=== PATIENT | female | born 1960 | race Caucasian/White ===

== ENCOUNTER → 2019-08-07 | Day surgery (SDC) | payer BC ==
[~2019-08-07] MED LIST: ACETAMINOPHEN650 M1 PO; ADVAIR 100-501 EACH INH; FENTANYL CITRATE/PF 100MCG/2 ML INJ ONE; IPRAT-ALBUT 0.5-3 ML NEB; MIDAZOLAM HCL 2 MG/2 ML VIAL ONE; PROAIR HFA INH8.5 GM INH; PROPOFOL IV EMULSION 10 MG/ML 50 ML VIAL ONE; SPIRIVA18 MCG INH
--- OUTSIDE RECORDS SUMMARY | 2019-08-07 05:29 | XMS REPORT ---
Author Author [facility] Address Unknown Phone Unavailable Care Team Providers Care Endoscopy Nurse Name Role Phone KIRSTIE GALINDO Unavailable Unavailable Payers Payer Name Policy Type Policy Number Effective Date Expiration Date Problems This patient has no known problems. Allergies, Adverse Reactions, Alerts Allergy Name Allergy Type Status Severity Reaction(s) Onset Date Inactive Date Treating Clinician Comments No Known Allergies DA Active U 2017-12-10 00:00:00 Medications This patient has no known medications. Results Test Description Test Time Test Comments Text Results Atomic Results Result Comments - XR NECK SOFT TISSUE 2018-11-03 12:38:00 FAX: Kirstie Pelletier MD [phone] [place]: St: [facility] FAX: Ana Rosa Colbert MD [phone] Name: AMELIE [facility] : 1960 Age/S: 58/F [address] [place] [address] Blvd Unit #: [id number] Loc: [place] [address] Phys: Ana Rosa Petersen MD Acct: [id number] Dis Date: Status: REG CLI PHONE #: [phone] Exam Date: 11/03/2018939 FAX #: [phone] Reason: M19.90. INFLAMMATORY ARTHRITIS. EXAMS: CPT CODE: [id number] XR NECK SOFT TISSUE 71094 Soft tissue neck 2 view HISTORY: Inflammatory arthritis. Pulmonary nodule. No relevant comparison. FINDINGS: The epiglottis and aryepiglottic folds are normal. There is no prevertebral soft tissue swelling. There is extensive degenerative disc and degenerative facet change at the mid to low cervical spine. Chronic findings at the lung apices are described on separate CT chest. IMPRESSION: 1. No acute soft tissue neck abnormality. 2. Extensive mid to low cervical degenerative disc and degenerative facet change. This may reflect inflammatory arthritis given history. 3. Lung findings are described on separate CT chest. SL:01 at 1238 Reported and signed by: Anselmo Pickens M.D. CC: Kirstie Galindo MD; Ana Rosa Petersen MD Technologist: RT Meghana(Cynthia) Trnscrd Date/Time/By: 11/03/2018 (1238) : By: Laureen Orig Print D/T: S: 11/03/2018 (2913) PAGE 1 Signed Report - CT CHEST W/O CONTRAST 2018-11-03 12:22:00 Name: AMELIE THOM[facility] : 1960 Age/S: 58 / F [address] [place] [address] Unit #: [id number] Loc: [place] [address] Phys: Ana Rosa Petersen MD Acct: [id number] Dis Date: Status: REG CLI PHONE #: [phone] Exam Date: 11/03/2018 09 FAX #: [phone] Reason: R91.1, SOLITARY PULMONARY NODULE. EXAMS: CPT CODE: [id number] CT CHEST W/O CONTRAST 10378 PROCEDURE: CT CHEST WITHOUT CONTRAST INDICATION: Solitary pulmonary nodule. COMPARISON: No relevant priors available. TECHNIQUE: Helical imaging performed apices through the lung bases with axial, sagittal and coronal reformations. CT imaging performed at this location utilizes radiation dose optimization techniques which include one or more of the following: - Automated exposure control -Adjustment of the mA and/or kV according to patient size -Use of iterative reconstruction technique CT Radiation Dose DLP 115.20 mGy-cm IV CONTRAST: None. FINDINGS: LUNGS: Interstitial process with areas of consolidation and associated volume loss involving the majority of the left upper lobe. Areas of cavitation are noted within the lung parenchyma left upper lobe. Subpleural opacity left lower lobe 10 mm in diameter. This is on axial image 154 series 3. A few much smaller opacities 2 to 3 mm in diameter noted in the superior segment left lower lobe. Emphysematous changes noted throughout the right upper lobe and a small amount of chronic appearing fibrocalcific scarring anteriorly right upper lobe. No pleural effusions. MEDIASTINUM: There are a few very small 5 to 6 mm or less mediastinal nodes. Thoracic aorta normal in caliber. Central airway clear. UPPER ABDOMEN: Visualized upper abdominal viscera are bhargav l. MUSCULOSKELETAL: Diffuse osteopenia. Bones intact. IMPRESSION: 1. Chronic appearing changes involving the majority of the left upper lobe with associated volume loss. These are most likely postinflammatory. Less pronounced changes right upper lobe. 2. 10 mm subpleural opacity left lower lobe laterally. I have no prior exams to establish stability. Recommend comparison to prior exams from another facility. 3. Emphysematous change right upper lobe. 4. Osteopenia. PAGE 1 Signed Report (CONTINUED) Name: AMELIE THOM[facility] : 1960 Age/S: 58 / F [address] [place] [address] Unit #: [id number] Loc: [place] [address] Phys: Ana Rosa Petersen MD Acct: [id number] Dis Date: Status: REG CLI PHONE #: [phone] Exam Date: 11/03/2018 09 FAX #: [phone] Reason: R91.1, SOLITARY PULMONARY NODULE. EXAMS: CPT CODE: [id number] CT CHEST W/O CONTRAST 77690 <Continued> END IMPRESSION [id number] at 1222 Reported and signed by: Gilmar Toscano M.D. CC: Kirstie Galinod MD; Ana Rosa Petersen MD Technologist:Vinay Walker, RT(R); Martin CTDI: DLP: Trnscb Date/Time: 11/03/2018 (122) t.[email or web address].RTB Orig Print D/T: S: 11/03/2018 (5766) PAGE 2 Signed Report - XR SHOULDER 2 + V BI 2018-11-03 11:04:00 FAX: Kirstie Pelletier MD [phone] [place]: St: [facility] FAX: Ana Rosa Colbert MD [phone] Name: AMELIE THOM[facility] : 1960 Age/S: 58/F [address] [place] [address] Blvd Unit #: [id number] Loc: [place] [address] Phys: Ana Rosa Petersen MD Acct: [id number] Dis Date: Status: REG CLI PHONE #: [phone] Exam Date: 11/03/2018 0948 FAX #: [phone] Reason: M25.519 , SHOULDER PAIN. EXAMS: CPT CODE: [id number] XR SHOULDER 2 + [place] [address] BILATERAL SHOULDERS, 3 VIEWS EACH 11/03/2018 COMPARISON: None CLINICAL HISTORY: M25.519 , SHOULDER PAIN. FINDINGS: No acute fracture or dislocation is noted. No lytic or blastic lesion is seen. No significant joint space narrowing noted. No abnormal soft tissue calcifications are seen within either shoulder. A few calcifications are seen in the region of the right carotid artery. Abnormal opacities with cystic changes are present in the left upper lobe with associated left apical pleural thickening. Minor right upper lobe pleural and parenchymal scarring noted. CO NCLUSION: No acute osseous abnormality is seen in the shoulders. Abnormal left upper lobe opacities/cystic changes. Consider CT chest for further assessment. at 1104 Reported and signed by: Dwayne Aceves M.D. CC: Kirstie Galindo MD; Ana Rosa Petersen MD Technologist: GAIL Kowalski) Trnscrd Date/Time/By: 11/03/2018 (2348) : By: [email or web address] Orig Print D/T: S: 11/03/2018 (4462) PAGE 1 Signed Report US RENAL DOPPLER LTD [place] [address] Patient Name: AMELIE INMAN MR #: [id number] : 1960 Age/Sex: 57/F Acct #: [id number] Req #: [id number] Adm Physician: Ordered by: KIRSTIE GALINDO MD Report #: [id number] Location: US Room/Bed: Procedure: [id number] US/US RENAL DOPPLER LTD Exam Date: Exam Time: REPORT STATUS: Signed PROCEDURE: RENAL DOPPLER ULTRASOUND COMPARISON: [facility], CT, CT CHEST WO, 01/11/2017, 8:19. [facility], CT, OUTSIDE CT IMAGES, 02/10/2016, 9:46. INDICATIONS: HTN NOT CONTROLLED FINDINGS: Multiple sagittal and axial images of the right and left kidneys were obtained. RIGHT KIDNEY: The right kidney measures 9.0 cm. The cortical thickness is 1.1 cm. The right kidney has normal echogenicity. There are no masses, hydronephrosis or calculi. The right renal artery PSV is 91.1, 33.8, 54.3 and 47.4 cm/sec at the ostium, proximal, mid, and distal aspects, respectively. The right segmental artery PSV is 44.7, 61.1 and 33.3 in the superior, mid, and inferior aspects, respectively cm/sec. LEFT KIDNEY: The left kidney measures 9.5 cm. The cortical thickness is 1.8 cm. The left kidney has normal echogenicity. There are no masses, hydronephrosis or calculi. The left renal artery PSV is 78.8, 42.4, 54.7 and 46.5 cm/sec at the ostium, proximal, mid, and distal aspects, respectively. The left segmental artery PSV is 31.5, 41.0 and 44.7 cm/sec at the superior, mid, and inferior aspects, respectively. The abdominal aorta PSV is 53.2, 39.7 and 37.3 cm/sec at the proximal, celiac/SMA and distal aspects of the respectively. The right renal artery/aorta ratio is 1.7. The left renal artery/aorta ratio is 1.5. The right and left renal veins are patent. The bladder is unremarkable. No focal lesions. Bilateral ureteral jets are identified. CONCLUSION: 1. Essentially unremarkable renal ultrasound. 2. No sonographic evidence for renal artery stenosis. Luis Dumont M.D. Dictated by: Luis Dumont M.D. on 05/10/2017 at 14:24 Electronically approved by: Luis Dumont M.D. on 05/10/2017 at 14:24 Dictated By: LUIS DUMONT MD 142 Transcribed By: CHEO on 05/10/17 1424 COPY TO: KIRSTIE GALINDO MD US RENAL RETROPERITONEAL COMP [place] [address] Patient Name: AMELIE INMAN MR #: [id number] : 1960 Age/Sex: 57/F Acct #: [id number] Req #: [id number] Adm Physician: Ordered by: KIRSTIE GALINDO MD Report #: [id number] Location: US Room/Bed: Procedure: [id number] US/US RENAL RETROPERITONEAL COMP Exam Date: Exam Time: REPORT STATUS: Signed PROCEDURE: US RETROPERITONEAL ( KIDNEY ). COMPARISON: [facility], CT, CT CHEST WO, 01/11/2017, 8:19. INDICATIONS: HTN NOT CONTROLLED CONCLUSION: Please see previously dictated report under renal Doppler ultrasound performed same date Luis Dumont M.D. Dictated by: Luis Dumont M.D. on 05/10/2017 at 14:24 Electronically approved by: Luis Dumont M.D. on 05/10/2017 at 14:24 Dictated By: LUIS DUMONT MD 1424 Transcribed By: CHEO on 05/10/171423 COPY TO: KIRSTIE GALINDO MD
[2019-08-07 06:41] LABS: BASOPHILS # (AUTO) 0.1 (0.0-0.1); BASOPHILS % 0.6 % (0.0-1.0); EOSINOPHILS # (AUTO) 0.1 (0.0-0.4); EOSINOPHILS % 0.7 % (0.0-6.0); HEMATOCRIT 26.1 % (34.2-44.1); HEMOGLOBIN 8.1 g/dL (12.0-16.0); LYMPHOCYTES # (AUTO) 1.5 (1.0-3.2); MEAN CORPUSCULAR VOLUME 77.4 fL (81-99); MONOCYTES # (AUTO) 1.9 (0.2-0.8); NEUTROPHILS # (AUTO) 11.2 (2.1-6.9); PLATELET COUNT 666 x10e3/uL (140-360); RED BLOOD COUNT 3.37 x10e6/uL (3.6-5.1); RED CELL DISTRIBUTION WIDTH 15.3 % (11.7-14.4)
[2019-08-07 07:45] VITALS: BP 101/60
[2019-08-07 08:40] LABS: LYMPHOCYTES % (MANUAL) 7 % (19-48); MONOCYTES % (MANUAL) 13 % (3.4-9.0); NEUTROPHILS % (MANUAL) 80 % (40-74); PLATELET ESTIMATE SLIGHTLY INCREASED; PLATELET MORPHOLOGY COMMENT NORMAL; RBC MORPHOLOGY COMMENT NORMAL
== END | disposition home or self-care (01) ==
LOC: OR 05:25
PROVIDERS: ATTEND Internal Medicine Gastroenterology
DX: D50.0 Iron deficiency anemia secondary to blood loss (chronic) (principal); K29.50 Unspecified chronic gastritis without bleeding; K21.9 Gastro-esophageal reflux disease without esophagitis; K44.9 Diaphragmatic hernia without obstruction or gangrene; K57.30 Diverticulosis of large intestine without perforation or abscess without bleeding; K64.8 Other hemorrhoids; R00.0 Tachycardia, unspecified; J44.9 Chronic obstructive pulmonary disease, unspecified; I10 Essential (primary) hypertension; F17.200 Nicotine dependence, unspecified, uncomplicated
CPT/HCPCS: 36415; 43239; 45378; 85025; J2250; J2704; J3010

== ENCOUNTER 2020-05-02 16:31 | Inpatient (IN) | payer BC ==
[~2020-05-02] VITALS: Ht 152.4 cm; Wt 31.5 kg
[~2020-05-02 16:31] MED LIST changes: -FENTANYL CITRATE/PF 100MCG/2 ML INJ ONE; -MIDAZOLAM HCL 2 MG/2 ML VIAL ONE; -PROPOFOL IV EMULSION 10 MG/ML 50 ML VIAL ONE
[2020-05-02] MEDS ORDERED: SODIUM CHLORIDE 0.9% 1000ML 1,000 ML IV STA (17:18)
[2020-05-02] MEDS ORDERED: PANTOPRAZOLE 40 MG 10ML VIAL IV NR (17:30)
[2020-05-02] MEDS ORDERED: ONDANSETRON HCL INJ 2MG/ML 2ML 2 MG/ML VIAL IV PRN (19:00)
[2020-05-02 20:02] LABS: BASOPHILS % 0.5 % (0.0-1.0); EOSINOPHILS # (AUTO) 0.1 (0.0-0.4); EOSINOPHILS % 1.1 % (0.0-6.0); HEMATOCRIT 30.2 % (34.2-44.1); HEMOGLOBIN 9.4 g/dL (12.0-16.0); LYMPHOCYTES # (AUTO) 1.6 (1.0-3.2); LYMPHOCYTES % 21.3 % (18.0-39.1); MEAN CORPUSCULAR HGB CONC 31.1 g/dL (31-35); MEAN CORPUSCULAR VOLUME 77.2 fL (81-99); MONOCYTES # (AUTO) 0.7 (0.2-0.8); MONOCYTES % 9.6 % (4.4-11.3); NEUTROPHILS % 67.2 % (38.7-80.0); PLATELET COUNT 248 x10e3/uL (140-360); RED BLOOD COUNT 3.91 x10e6/uL (3.6-5.1)
[2020-05-02 20:12] LABS: INR 1.05; PROTHROMBIN TIME 14.2 seconds (11.9-14.5)
[2020-05-02 20:13] LABS: PARTIAL THROMBOPLASTIN TIME 46.9 seconds (23.8-35.5)
[2020-05-02] MEDS: CEFTRIAXONE SOD 1 GM/NS 50 ML 50 ML IV SCH (20:13)
[2020-05-02 20:22] LABS: ALANINE AMINOTRANSFERASE 7 IU/L (0-55); ALBUMIN/GLOBULIN RATIO 0.8 (0.8-2.0); ALKALINE PHOSPHATASE 85 IU/L (40-150); ANION GAP 11.2 mmol/L (8-16); BLOOD UREA NITROGEN 9 mg/dL (7-26); BUN/CREATININE RATIO 15 (6-25); CALCIUM 8.9 mg/dL (8.4-10.2); CARBON DIOXIDE 27 mmol/L (22-29); CHLORIDE 88 mmol/L (98-107); CREATININE, SERUM 0.59 mg/dL (0.57-1.11); EST GLOMERULAR FILTRATION RATE > 60 ML/MIN (60-); GLUCOSE 89 mg/dL (74-118); MAGNESIUM 1.9 MG/DL (1.3-2.1); POTASSIUM 4.2 mmol/L (3.5-5.1); SODIUM 122 mmol/L (136-145)
[2020-05-02 21:20] VITALS: BP 106/54
[2020-05-02] MEDS ORDERED: RIFABUTIN150 MG PO (21:55)
[2020-05-02] MEDS ORDERED: AZITHROMYCIN250 MG PO (21:57)
[2020-05-02] MEDS: SODIUM CHLORIDE 0.9% 1000ML 1,000 ML IV SCH (22:03)
[2020-05-02] MEDS ORDERED: AMIKACIN S500 MG/2 M IV (22:06)
[2020-05-02 22:19] VITALS: BP 106/54
[2020-05-03] VITALS (8 sets, daily range): BP systolic 98–128; BP diastolic 59–84
[2020-05-03 03:54] LABS: BILIRUBIN,URINE NEGATIVE (NEGATIVE); CLARITY,URINE CLEAR (CLEAR); COLOR,URINE YELLOW (YELLOW); KETONES,URINE NEGATIVE (NEGATIVE); LEUKOCYTE ESTERASE ,URINE NEGATIVE (NEGATIVE); NITRITE,URINE NEGATIVE (NEGATIVE); PROTEIN,URINE DIPSTICK NEGATIVE (NEGATIVE); URINE UROBILINOGEN 0.2 mg/dL (0.2 - 1)
[2020-05-03 04:00] LABS: BACTERIA,URINE RARE /HPF; EPITHELIAL CELLS,URINE FEW /LPF; RBC,URINE 0-5 /HPF (0-5); WBC,URINE (MAN) 0-5 /HPF (0-5)
[2020-05-03 05:22] LABS: BASOPHILS % 0.4 % (0.0-1.0); EOSINOPHILS # (AUTO) 0.1 (0.0-0.4); EOSINOPHILS % 1.1 % (0.0-6.0); HEMATOCRIT 26.5 % (34.2-44.1); HEMOGLOBIN 8.3 g/dL (12.0-16.0); LYMPHOCYTES # (AUTO) 1.1 (1.0-3.2); LYMPHOCYTES % 19.6 % (18.0-39.1); MEAN CORPUSCULAR HEMOGLOBIN 24.3 pg (28-32); MEAN CORPUSCULAR HGB CONC 31.3 g/dL (31-35); MEAN CORPUSCULAR VOLUME 77.5 fL (81-99); MONOCYTES # (AUTO) 0.6 (0.2-0.8); MONOCYTES % 10.8 % (4.4-11.3); NEUTROPHILS # (AUTO) 3.7 (2.1-6.9); NEUTROPHILS % 67.7 % (38.7-80.0); PLATELET COUNT 215 x10e3/uL (140-360); RED BLOOD COUNT 3.42 x10e6/uL (3.6-5.1); RED CELL DISTRIBUTION WIDTH 14.9 % (11.7-14.4)
[2020-05-03] MEDS: SODIUM CHLORIDE 0.9% 1000ML 1,000 ML IV SCH (05:53)
[2020-05-03 06:22] LABS: ALBUMIN 2.5 g/dL (3.5-5.0); ALBUMIN/GLOBULIN RATIO 0.8 (0.8-2.0); ALKALINE PHOSPHATASE 72 IU/L (40-150); ANION GAP 10.8 mmol/L (8-16); BLOOD UREA NITROGEN 8 mg/dL (7-26); BUN/CREATININE RATIO 16 (6-25); CARBON DIOXIDE 26 mmol/L (22-29); CHLORIDE 98 mmol/L (98-107); EST GLOMERULAR FILTRATION RATE > 60 ML/MIN (60-); GLUCOSE 79 mg/dL (74-118); POTASSIUM 3.8 mmol/L (3.5-5.1); SODIUM 131 mmol/L (136-145)
[2020-05-03 06:23] LABS: ALANINE AMINOTRANSFERASE < 6 IU/L (0-55)
[2020-05-03 07:00] LABS: FERRITIN 1785.57 ng/mL (4.63-204.00)
[2020-05-03] MEDS ORDERED: SODIUM CHLORIDE 0.9% 50ML 50 ML ONE ×2 (07:42→23:54)
[2020-05-03] MEDS ORDERED: IOPAMIDOL 370 MG/ML 200 ML INFUS..BTL INJ ONE ×2 (07:42→23:55)
[2020-05-03] MEDS: ACETAMINOPHEN 325 MG TAB PO PRN (09:54)
[2020-05-03] MEDS ORDERED: ALBUTEROL SULFATE HFA 8GM INHALATION AEROSOL INH PRN (10:00)
[2020-05-03] MEDS: PANTOPRAZOLE 40 MG 10ML VIAL IV SCH (10:04)
[2020-05-03] MEDS ORDERED: MIDAZOLAM HCL 2 MG/2 ML VIAL ONE (11:21)
[2020-05-03] MEDS ORDERED: KETAMINE HCL INJ 50 MG/ML 10 ML VIAL ONE (11:21)
[2020-05-03] MEDS: IRON SUCROSE 100 MG in SODIUM CHLORIDE 0.9% 100 ML 100 ML IV SCH (12:45)
[2020-05-03] MEDS ORDERED: PROPOFOL IV EMULSION 10 MG/ML 20 ML VIAL ONE (13:35)
[2020-05-03] MEDS ORDERED: SODIUM CHLORIDE 0.9% 1000ML 0 ML ONE (16:38)
[2020-05-03] MEDS: CEFTRIAXONE SOD 1 GM/NS 50 ML 50 ML IV SCH (18:20)
[2020-05-03] MEDS ORDERED: SODIUM CHLORIDE 0.9% 1000ML 1,000 ML ONE ×2 (21:39→23:38)
[2020-05-03] MEDS ORDERED: ALBUMIN 25% 12.5GM 0.25 GM/ML BTL IV ONE (22:30)
[2020-05-03] MEDS ORDERED: SODIUM CHLORIDE 0.9% 1000ML 1,000 ML IV SCH (22:30)
[2020-05-03] MEDS ORDERED: ALBUMIN 25% 12.5GM 50ML 100 ML IV ONE (22:41)
[2020-05-03 23:09] LABS: BASOPHILS % 0.1 % (0.0-1.0); EOSINOPHILS % 0.2 % (0.0-6.0); HEMATOCRIT 24.4 % (34.2-44.1); HEMOGLOBIN 7.4 g/dL (12.0-16.0); LYMPHOCYTES # (AUTO) 0.7 (1.0-3.2); LYMPHOCYTES % 8.1 % (18.0-39.1); MEAN CORPUSCULAR HEMOGLOBIN 24.5 pg (28-32); MEAN CORPUSCULAR HGB CONC 30.3 g/dL (31-35); MEAN CORPUSCULAR VOLUME 80.8 fL (81-99); MONOCYTES # (AUTO) 0.5 (0.2-0.8); MONOCYTES % 5.8 % (4.4-11.3); NEUTROPHILS # (AUTO) 6.9 (2.1-6.9); NEUTROPHILS % 84.8 % (38.7-80.0); PLATELET COUNT 149 x10e3/uL (140-360); RED BLOOD COUNT 3.02 x10e6/uL (3.6-5.1); RED CELL DISTRIBUTION WIDTH 15.3 % (11.7-14.4)
[2020-05-03] MEDS ORDERED: SODIUM BICARBONATE 8.4% INJ 50 ML SYR IV STA (23:14)
[2020-05-03] MEDS ORDERED: SODIUM BICARBONATE 8.4% 150 ML in DEXTROSE 5% 1,000 ML IV STA (23:19)
[2020-05-03 23:20] LABS: ANION GAP 8.8 mmol/L (8-16); BLOOD UREA NITROGEN 10 mg/dL (7-26); BUN/CREATININE RATIO 19 (6-25); CALCIUM 7.4 mg/dL (8.4-10.2); CARBON DIOXIDE 22 mmol/L (22-29); CHLORIDE 108 mmol/L (98-107); CREATININE, SERUM 0.53 mg/dL (0.57-1.11); EST GLOMERULAR FILTRATION RATE > 60 ML/MIN (60-); POTASSIUM 3.8 mmol/L (3.5-5.1); SODIUM 135 mmol/L (136-145)
[2020-05-03 23:22] LABS: GLUCOSE 27 mg/dL (74-118)
[2020-05-03] MEDS ORDERED: SODIUM BICARBONATE 8.4% SYRING 150 ML ONE ×2 (23:22→23:38)
[2020-05-03 23:24] LABS: ABG HCO3 4 mmol/L (22-26); ABG PCO2 16 mmHg (35-45); ABG PH 6.98 (7.35-7.45); ABG PO2 55 mmHg (80-105)
[2020-05-03 23:25] LABS: ABG TCO2 > 5
[2020-05-03] MEDS ORDERED: DEXTROSE 5% 1,000 ML IV ONE (23:41)
[2020-05-04] VITALS (26 sets, daily range): BP systolic 71–123; BP diastolic 47–77
[2020-05-04 02:37] LABS: ABG HCO3 34 mmol/L (22-26); ABG PCO2 73 mmHg (35-45); ABG PH 7.27 (7.35-7.45); ABG PO2 564 mmHg (80-105); ABG TCO2 36
[2020-05-04] MEDS: DEXTROSE 5%/0.9% SOD CHL 1,000 ML IV SCH ×3 (02:48→22:36)
[2020-05-04 04:43] LABS: BASOPHILS % 0.1 % (0.0-1.0); EOSINOPHILS % 0.1 % (0.0-6.0); HEMATOCRIT 23.3 % (34.2-44.1); HEMOGLOBIN 7.3 g/dL (12.0-16.0); LYMPHOCYTES # (AUTO) 0.6 (1.0-3.2); LYMPHOCYTES % 8.5 % (18.0-39.1); MEAN CORPUSCULAR HEMOGLOBIN 24.7 pg (28-32); MEAN CORPUSCULAR HGB CONC 31.3 g/dL (31-35); MONOCYTES # (AUTO) 0.5 (0.2-0.8); MONOCYTES % 6.8 % (4.4-11.3); NEUTROPHILS # (AUTO) 5.9 (2.1-6.9); NEUTROPHILS % 84.1 % (38.7-80.0); PLATELET COUNT 159 x10e3/uL (140-360); RED BLOOD COUNT 2.95 x10e6/uL (3.6-5.1)
[2020-05-04 08:19] LABS: ALANINE AMINOTRANSFERASE 29 IU/L (0-55); ALBUMIN 2.7 g/dL (3.5-5.0); ALBUMIN/GLOBULIN RATIO 1.1 (0.8-2.0); ALKALINE PHOSPHATASE 147 IU/L (40-150); ANION GAP 11.2 mmol/L (8-16); BLOOD UREA NITROGEN 9 mg/dL (7-26); BUN/CREATININE RATIO 17 (6-25); CALCIUM 7.6 mg/dL (8.4-10.2); CARBON DIOXIDE 29 mmol/L (22-29); CHLORIDE 105 mmol/L (98-107); CREATININE, SERUM 0.54 mg/dL (0.57-1.11); EST GLOMERULAR FILTRATION RATE > 60 ML/MIN (60-); GLUCOSE 110 mg/dL (74-118); POTASSIUM 3.2 mmol/L (3.5-5.1); SODIUM 142 mmol/L (136-145)
[2020-05-04 08:41] LABS: CREATINE KINASE MB 4.2 ng/mL (0-5.0)
[2020-05-04] MEDS: PANTOPRAZOLE 40 MG 10ML VIAL IV SCH (08:43)
[2020-05-04] MEDS: BALSAM PERU/CASTOR OIL 60 GM OINT...G. TP SCH ×2 (09:00→09:19)
[2020-05-04] MEDS: IRON SUCROSE 100 MG in SODIUM CHLORIDE 0.9% 100 ML 100 ML IV SCH (09:20)
[2020-05-04 09:26] LABS: ABG HCO3 31 mmol/L (22-26); ABG PCO2 59 mmHg (35-45); ABG PH 7.33 (7.35-7.45); ABG PO2 229 mmHg (80-105); ABG TCO2 33
[2020-05-04] MEDS: PIPER-TAZ 3.375 GM 50 ML IV SCH ×2 (12:04→18:02)
[2020-05-04 16:42] LABS: ABG PH 7.17 (7.35-7.45)
[2020-05-04 16:44] LABS: ABG HCO3 31 mmol/L (22-26); ABG PCO2 86 mmHg (35-45); ABG PO2 79 mmHg (80-105); ABG TCO2 34
[2020-05-04] MEDS: PROPOFOL IV EMULSION 10MG/ML 100 ML IV PRN (18:02)
[2020-05-04 18:25] LABS: ABG PCO2 86 mmHg (35-45); ABG PH 7.19 (7.35-7.45); ABG PO2 212 mmHg (80-105)
[2020-05-04 18:26] LABS: ABG HCO3 33 mmol/L (22-26); ABG TCO2 35
[2020-05-04] MEDS: ALBUTEROL/IPRATROPIUM 3 ML NEB NEB SCH ×2 (19:00→23:48)
[2020-05-04] MEDS: HEPARIN SOD (PORCINE) 5,000 UNIT/ML VIAL SC SCH (21:08)
[2020-05-04 21:13] LABS: CREATINE KINASE MB 5.8 ng/mL (0-5.0)
[2020-05-05] VITALS (40 sets, daily range): BP systolic 84–131; BP diastolic 50–79
[2020-05-05] MEDS: PIPER-TAZ 3.375 GM 50 ML IV SCH ×5 (00:35→23:45)
[2020-05-05] MEDS: ALBUTEROL/IPRATROPIUM 3 ML NEB NEB SCH ×6 (03:35→23:10)
[2020-05-05 04:48] LABS: BASOPHILS % 0.2 % (0.0-1.0); EOSINOPHILS % 0.6 % (0.0-6.0); LYMPHOCYTES % 20.7 % (18.0-39.1); MEAN CORPUSCULAR HEMOGLOBIN 23.9 pg (28-32); MEAN CORPUSCULAR HGB CONC 30.1 g/dL (31-35); MEAN CORPUSCULAR VOLUME 79.2 fL (81-99); MONOCYTES # (AUTO) 0.5 (0.2-0.8); MONOCYTES % 9.6 % (4.4-11.3); NEUTROPHILS # (AUTO) 3.3 (2.1-6.9); NEUTROPHILS % 68.5 % (38.7-80.0); PLATELET COUNT 130 x10e3/uL (140-360); RED BLOOD COUNT 2.64 x10e6/uL (3.6-5.1); RED CELL DISTRIBUTION WIDTH 15.4 % (11.7-14.4)
[2020-05-05 04:55] LABS: HEMATOCRIT 20.9 % (34.2-44.1); HEMOGLOBIN 6.3 g/dL (12.0-16.0)
[2020-05-05 05:18] LABS: ALANINE AMINOTRANSFERASE 16 IU/L (0-55); ALBUMIN 2.2 g/dL (3.5-5.0); ALBUMIN/GLOBULIN RATIO 0.9 (0.8-2.0); ALKALINE PHOSPHATASE 93 IU/L (40-150); ANION GAP 9.5 mmol/L (8-16); BLOOD UREA NITROGEN 5 mg/dL (7-26); BUN/CREATININE RATIO 9 (6-25); CALCIUM 7.6 mg/dL (8.4-10.2); CARBON DIOXIDE 27 mmol/L (22-29); CHLORIDE 109 mmol/L (98-107); CREATININE, SERUM 0.53 mg/dL (0.57-1.11); EST GLOMERULAR FILTRATION RATE > 60 ML/MIN (60-); GLUCOSE 111 mg/dL (74-118); SODIUM 143 mmol/L (136-145)
[2020-05-05 05:22] LABS: POTASSIUM 2.5 mmol/L (3.5-5.1)
[2020-05-05] MEDS: PROPOFOL IV EMULSION 10MG/ML 100 ML IV PRN (05:55)
[2020-05-05] MEDS ORDERED: SODIUM CHLORIDE 0.9% 250ML 250 ML IV SCH (07:15)
[2020-05-05] MEDS ORDERED: POTASSIUM CHLORIDE 20MEQ/100ML 200 ML IV ONE ×2 (07:15→18:00)
[2020-05-05 09:24] LABS: ABG HCO3 26 mmol/L (22-26); ABG PCO2 42 mmHg (35-45); ABG PH 7.39 (7.35-7.45); ABG PO2 239 mmHg (80-105); ABG TCO2 27
[2020-05-05] MEDS: PANTOPRAZOLE 40 MG 10ML VIAL IV SCH (09:38)
[2020-05-05] MEDS: IRON SUCROSE 100 MG in SODIUM CHLORIDE 0.9% 100 ML 100 ML IV SCH (10:43)
[2020-05-05] MEDS: HEPARIN SOD (PORCINE) 5,000 UNIT/ML VIAL SC SCH ×2 (10:46→20:45)
[2020-05-05] MEDS ORDERED: SODIUM CHLORIDE 0.9% 250ML 250 ML ONE (11:23)
[2020-05-05] MEDS: ETHAMBUTOL HCL 400 MG TAB PO SCH (12:05)
[2020-05-05] MEDS: AZITHROMYCIN 250 MG TAB PO SCH (12:05)
[2020-05-05] MEDS: BALSAM PERU/CASTOR OIL 60 GM OINT...G. TP SCH (12:05)
[2020-05-05] MEDS: RIFAMPIN 300 MG CAP PO SCH (12:05)
[2020-05-05] MEDS ORDERED: POTASSIUM CHLORIDE 20MEQ/100ML 200 ML ONE (15:53)
[2020-05-05] MEDS: DEXTROSE 5%/0.9% SOD CHL 1,000 ML IV SCH (17:46)
[2020-05-06] VITALS (26 sets, daily range): BP systolic 96–130; BP diastolic 53–77
[2020-05-06] MEDS: ALBUTEROL/IPRATROPIUM 3 ML NEB NEB SCH ×6 (03:50→23:02)
[2020-05-06 05:37] LABS: BASOPHILS % 0.4 % (0.0-1.0); EOSINOPHILS # (AUTO) 0.1 (0.0-0.4); EOSINOPHILS % 1.8 % (0.0-6.0); HEMATOCRIT 30.8 % (34.2-44.1); LYMPHOCYTES # (AUTO) 0.9 (1.0-3.2); LYMPHOCYTES % 16.5 % (18.0-39.1); MEAN CORPUSCULAR HEMOGLOBIN 26.3 pg (28-32); MEAN CORPUSCULAR HGB CONC 32.5 g/dL (31-35); MEAN CORPUSCULAR VOLUME 81.1 fL (81-99); MONOCYTES # (AUTO) 0.5 (0.2-0.8); MONOCYTES % 8.6 % (4.4-11.3); NEUTROPHILS % 72.3 % (38.7-80.0); PLATELET COUNT 100 x10e3/uL (140-360); RED CELL DISTRIBUTION WIDTH 15.9 % (11.7-14.4)
[2020-05-06] MEDS: DEXTROSE 5%/0.9% SOD CHL 1,000 ML IV SCH (05:37)
[2020-05-06] MEDS: PIPER-TAZ 3.375 GM 50 ML IV SCH ×3 (05:37→18:34)
[2020-05-06] MEDS: PROPOFOL IV EMULSION 10MG/ML 100 ML IV PRN ×2 (05:38→21:00)
[2020-05-06 06:10] LABS: ALANINE AMINOTRANSFERASE 11 IU/L (0-55); ALBUMIN 1.8 g/dL (3.5-5.0); ALBUMIN/GLOBULIN RATIO 0.7 (0.8-2.0); ALKALINE PHOSPHATASE 79 IU/L (40-150); ANION GAP 7.3 mmol/L (8-16); BLOOD UREA NITROGEN 6 mg/dL (7-26); BUN/CREATININE RATIO 10 (6-25); CARBON DIOXIDE 24 mmol/L (22-29); CHLORIDE 117 mmol/L (98-107); CREATININE, SERUM 0.58 mg/dL (0.57-1.11); EST GLOMERULAR FILTRATION RATE > 60 ML/MIN (60-); GLUCOSE 292 mg/dL (74-118); POTASSIUM 3.3 mmol/L (3.5-5.1); SODIUM 145 mmol/L (136-145)
[2020-05-06] MEDS: BALSAM PERU/CASTOR OIL 60 GM OINT...G. TP SCH (07:34)
[2020-05-06] MEDS: ETHAMBUTOL HCL 400 MG TAB PO SCH (07:41)
[2020-05-06] MEDS: PANTOPRAZOLE 40 MG 10ML VIAL IV SCH (07:41)
[2020-05-06] MEDS: RIFAMPIN 300 MG CAP PO SCH (07:41)
[2020-05-06] MEDS: HEPARIN SOD (PORCINE) 5,000 UNIT/ML VIAL SC SCH ×2 (07:41→20:51)
[2020-05-06] MEDS: AZITHROMYCIN 250 MG TAB PO SCH (07:41)
[2020-05-06] MEDS: IRON SUCROSE 100 MG in SODIUM CHLORIDE 0.9% 100 ML 100 ML IV SCH (08:22)
[2020-05-06] MEDS ORDERED: LIDOCAINE HCL 2% LOCAL INJ 5 ML SDV VIAL INJ ONE (12:14)
[2020-05-06] MEDS ORDERED: PROPOFOL IV EMULSION 10 MG/ML 20 ML VIAL ONE (12:14)
[2020-05-06] MEDS ORDERED: ETOMIDATE 2 MG/ML 10 ML INJ IV ONE (14:05)
[2020-05-06] MEDS ORDERED: SUCCINYLCHOLINE CHLORIDE 20 MG/ML 10ML VIAL ONE (14:05)
[2020-05-06] MEDS ORDERED: MIDAZOLAM HCL 2 MG/2 ML VIAL ONE (14:05)
[2020-05-06] MEDS ORDERED: SODIUM CHLORIDE 0.9% 1000 ML BAG IV ONE (14:18)
[2020-05-07] VITALS (25 sets, daily range): BP systolic 105–140; BP diastolic 59–77
[2020-05-07] MEDS: PIPER-TAZ 3.375 GM 50 ML IV SCH ×4 (01:08→18:00)
[2020-05-07] MEDS: ALBUTEROL/IPRATROPIUM 3 ML NEB NEB SCH ×4 (03:20→19:35)
[2020-05-07 06:18] LABS: BASOPHILS % 0.4 % (0.0-1.0); EOSINOPHILS # (AUTO) 0.1 (0.0-0.4); HEMATOCRIT 30.4 % (34.2-44.1); HEMOGLOBIN 9.7 g/dL (12.0-16.0); LYMPHOCYTES # (AUTO) 0.8 (1.0-3.2); LYMPHOCYTES % 17.1 % (18.0-39.1); MEAN CORPUSCULAR HEMOGLOBIN 25.7 pg (28-32); MEAN CORPUSCULAR HGB CONC 31.9 g/dL (31-35); MEAN CORPUSCULAR VOLUME 80.4 fL (81-99); MONOCYTES # (AUTO) 0.4 (0.2-0.8); NEUTROPHILS # (AUTO) 3.5 (2.1-6.9); NEUTROPHILS % 71.1 % (38.7-80.0); PLATELET COUNT 95 x10e3/uL (140-360); RED BLOOD COUNT 3.78 x10e6/uL (3.6-5.1); RED CELL DISTRIBUTION WIDTH 16.5 % (11.7-14.4)
[2020-05-07 06:33] LABS: ALANINE AMINOTRANSFERASE 9 IU/L (0-55); ALBUMIN 1.8 g/dL (3.5-5.0); ALBUMIN/GLOBULIN RATIO 0.7 (0.8-2.0); ALKALINE PHOSPHATASE 78 IU/L (40-150); ANION GAP 8.8 mmol/L (8-16); BLOOD UREA NITROGEN 11 mg/dL (7-26); BUN/CREATININE RATIO 21 (6-25); CALCIUM 7.5 mg/dL (8.4-10.2); CARBON DIOXIDE 24 mmol/L (22-29); CHLORIDE 114 mmol/L (98-107); CREATININE, SERUM 0.53 mg/dL (0.57-1.11); EST GLOMERULAR FILTRATION RATE > 60 ML/MIN (60-); GLUCOSE 95 mg/dL (74-118); MAGNESIUM 1.3 MG/DL (1.3-2.1); SODIUM 144 mmol/L (136-145)
[2020-05-07 06:36] LABS: POTASSIUM 2.8 mmol/L (3.5-5.1)
[2020-05-07] MEDS ORDERED: POTASSIUM CHLORIDE 20MEQ/15ML UDC NG ONE (06:45)
[2020-05-07] MEDS: AZITHROMYCIN 250 MG TAB PO SCH (10:44)
[2020-05-07] MEDS: PANTOPRAZOLE 40 MG 10ML VIAL IV SCH (10:44)
[2020-05-07] MEDS: RIFAMPIN 300 MG CAP PO SCH (10:44)
[2020-05-07] MEDS: ETHAMBUTOL HCL 400 MG TAB PO SCH (10:44)
[2020-05-07] MEDS: HEPARIN SOD (PORCINE) 5,000 UNIT/ML VIAL SC SCH ×2 (10:45→21:54)
[2020-05-07] MEDS: BALSAM PERU/CASTOR OIL 60 GM OINT...G. TP SCH (10:45)
[2020-05-07] MEDS: IRON SUCROSE 100 MG in SODIUM CHLORIDE 0.9% 100 ML 100 ML IV SCH (10:57)
[2020-05-07] MEDS ORDERED: KCL 20 MEQ PACKET/ ORAL SOLN NG ONE (11:00)
[2020-05-07] MEDS: ACETAMINOPHEN 325 MG TAB PO PRN (13:13)
[2020-05-07 13:41] LABS: ABG HCO3 23 mmol/L (22-26); ABG PCO2 38 mmHg (35-45); ABG PH 7.39 (7.35-7.45); ABG PO2 143 mmHg (80-105); ABG TCO2 24
[2020-05-07] MEDS: MORPHINE SULFATE INJ 4 MG/ML INJ 1ML IV PRN ×2 (15:30→17:11)
[2020-05-08] VITALS (14 sets, daily range): BP systolic 106–134; BP diastolic 65–88
[2020-05-08] MEDS: PIPER-TAZ 3.375 GM 50 ML IV SCH ×4 (00:50→17:22)
[2020-05-08] MEDS: ALBUTEROL/IPRATROPIUM 3 ML NEB NEB SCH ×5 (02:45→19:28)
[2020-05-08 07:25] LABS: ALANINE AMINOTRANSFERASE 8 IU/L (0-55); ALBUMIN 1.8 g/dL (3.5-5.0); ALBUMIN/GLOBULIN RATIO 0.6 (0.8-2.0); ALKALINE PHOSPHATASE 76 IU/L (40-150); ANION GAP 8.9 mmol/L (8-16); BLOOD UREA NITROGEN 11 mg/dL (7-26); BUN/CREATININE RATIO 21 (6-25); CALCIUM 7.9 mg/dL (8.4-10.2); CARBON DIOXIDE 25 mmol/L (22-29); CHLORIDE 114 mmol/L (98-107); CREATININE, SERUM 0.52 mg/dL (0.57-1.11); EST GLOMERULAR FILTRATION RATE > 60 ML/MIN (60-); GLUCOSE 99 mg/dL (74-118); MAGNESIUM 1.4 MG/DL (1.3-2.1); POTASSIUM 3.9 mmol/L (3.5-5.1); SODIUM 144 mmol/L (136-145)
[2020-05-08] MEDS: RIFAMPIN 300 MG CAP PO SCH (08:51)
[2020-05-08] MEDS: AZITHROMYCIN 250 MG TAB PO SCH (08:51)
[2020-05-08] MEDS: ETHAMBUTOL HCL 400 MG TAB PO SCH (08:51)
[2020-05-08] MEDS: PANTOPRAZOLE 40 MG 10ML VIAL IV SCH (08:51)
[2020-05-08] MEDS: BALSAM PERU/CASTOR OIL 60 GM OINT...G. TP SCH (08:52)
[2020-05-08] MEDS: HEPARIN SOD (PORCINE) 5,000 UNIT/ML VIAL SC SCH ×2 (08:52→21:00)
[2020-05-08] MEDS: IRON SUCROSE 100 MG in SODIUM CHLORIDE 0.9% 100 ML 100 ML IV SCH (08:52)
[2020-05-09] VITALS (25 sets, daily range): BP systolic 103–140; BP diastolic 51–81
[2020-05-09] MEDS: ALBUTEROL/IPRATROPIUM 3 ML NEB NEB SCH ×4 (02:46→19:25)
[2020-05-09] MEDS: PIPER-TAZ 3.375 GM 50 ML IV SCH ×2 (05:45)
[2020-05-09 06:18] LABS: ALANINE AMINOTRANSFERASE 8 IU/L (0-55); ALBUMIN 1.8 g/dL (3.5-5.0); ALBUMIN/GLOBULIN RATIO 0.6 (0.8-2.0); ALKALINE PHOSPHATASE 76 IU/L (40-150); ANION GAP 10.6 mmol/L (8-16); BLOOD UREA NITROGEN 11 mg/dL (7-26); BUN/CREATININE RATIO 22 (6-25); CARBON DIOXIDE 25 mmol/L (22-29); CHLORIDE 110 mmol/L (98-107); EST GLOMERULAR FILTRATION RATE > 60 ML/MIN (60-); GLUCOSE 95 mg/dL (74-118); POTASSIUM 3.6 mmol/L (3.5-5.1); SODIUM 142 mmol/L (136-145)
[2020-05-09] MEDS: AZITHROMYCIN 250 MG TAB PO SCH (08:00)
[2020-05-09] MEDS: BALSAM PERU/CASTOR OIL 60 GM OINT...G. TP SCH (08:00)
[2020-05-09] MEDS: PANTOPRAZOLE 40 MG 10ML VIAL IV SCH (08:00)
[2020-05-09] MEDS: RIFAMPIN 300 MG CAP PO SCH (08:00)
[2020-05-09] MEDS: ETHAMBUTOL HCL 400 MG TAB PO SCH (08:00)
[2020-05-09] MEDS: HEPARIN SOD (PORCINE) 5,000 UNIT/ML VIAL SC SCH (08:01)
[2020-05-09 10:31] LABS: ABG HCO3 26 mmol/L (22-26); ABG PCO2 52 mmHg (35-45); ABG PH 7.31 (7.35-7.45); ABG PO2 191 mmHg (80-105); ABG TCO2 28
[2020-05-09] MEDS: IRON SUCROSE 100 MG in SODIUM CHLORIDE 0.9% 100 ML 100 ML IV SCH (11:00)
[2020-05-09] MEDS: PROPOFOL IV EMULSION 10MG/ML 100 ML IV PRN (15:33)
[2020-05-10] VITALS (25 sets, daily range): BP systolic 88–128; BP diastolic 52–94
[2020-05-10] MEDS: PROPOFOL IV EMULSION 10MG/ML 100 ML IV PRN (02:06)
[2020-05-10] MEDS: ALBUTEROL/IPRATROPIUM 3 ML NEB NEB SCH ×4 (02:55→19:27)
[2020-05-10] MEDS: ACETAMINOPHEN 325 MG TAB PO PRN ×2 (03:47→09:18)
[2020-05-10 05:27] LABS: BASOPHILS % 0.2 % (0.0-1.0); EOSINOPHILS # (AUTO) 0.2 (0.0-0.4); EOSINOPHILS % 2.2 % (0.0-6.0); LYMPHOCYTES # (AUTO) 1.2 (1.0-3.2); LYMPHOCYTES % 15.2 % (18.0-39.1); MEAN CORPUSCULAR HEMOGLOBIN 25.9 pg (28-32); MEAN CORPUSCULAR HGB CONC 31.3 g/dL (31-35); MEAN CORPUSCULAR VOLUME 82.9 fL (81-99); MONOCYTES # (AUTO) 0.7 (0.2-0.8); MONOCYTES % 8.7 % (4.4-11.3); NEUTROPHILS % 73.3 % (38.7-80.0); RED BLOOD COUNT 3.86 x10e6/uL (3.6-5.1); RED CELL DISTRIBUTION WIDTH 17.8 % (11.7-14.4)
[2020-05-10 05:30] LABS: ANION GAP 8.2 mmol/L (8-16); BLOOD UREA NITROGEN 12 mg/dL (7-26); BUN/CREATININE RATIO 27 (6-25); CALCIUM 7.9 mg/dL (8.4-10.2); CARBON DIOXIDE 27 mmol/L (22-29); CHLORIDE 107 mmol/L (98-107); CREATININE, SERUM 0.45 mg/dL (0.57-1.11); EST GLOMERULAR FILTRATION RATE > 60 ML/MIN (60-); GLUCOSE 104 mg/dL (74-118); POTASSIUM 3.2 mmol/L (3.5-5.1); SODIUM 139 mmol/L (136-145)
[2020-05-10 05:35] LABS: PLATELET COUNT 100 x10e3/uL (140-360)
[2020-05-10] MEDS: ETHAMBUTOL HCL 400 MG TAB PO SCH (08:09)
[2020-05-10] MEDS: RIFAMPIN 300 MG CAP PO SCH (08:09)
[2020-05-10] MEDS: PANTOPRAZOLE 40 MG 10ML VIAL IV SCH (08:09)
[2020-05-10] MEDS: BALSAM PERU/CASTOR OIL 60 GM OINT...G. TP SCH (08:09)
[2020-05-10] MEDS: AZITHROMYCIN 250 MG TAB PO SCH (08:09)
[2020-05-10] MEDS ORDERED: CEFEPIME HCL 1 GM VIAL IV SCH (08:30)
[2020-05-10] MEDS ORDERED: POTASSIUM CHLORIDE 20 MEQ TAB CR PO PRN (08:45)
[2020-05-10] MEDS ORDERED: DEXAMETHASONE SOD PHOS INJ 4 MG/ML VIAL IV ONE (09:00)
[2020-05-10] MEDS ORDERED: KCL 20 MEQ PACKET/ ORAL SOLN NG PRN (09:00)
[2020-05-10] MEDS: CEFEPIME 1GM/NS 0.9% 50 ML 50 ML IV SCH ×2 (09:11→21:47)
[2020-05-10 09:29] LABS: ABG HCO3 28 mmol/L (22-26); ABG PCO2 46 mmHg (35-45); ABG PH 7.39 (7.35-7.45); ABG PO2 183 mmHg (80-105); ABG TCO2 29
[2020-05-10] MEDS ORDERED: BISMUTH SUBSALICYLATE 262 MG/15 ML 8OZ BTL PO PRN (11:00)
[2020-05-11] VITALS (24 sets, daily range): BP systolic 66–129; BP diastolic 41–81
[2020-05-11] MEDS: ALBUTEROL/IPRATROPIUM 3 ML NEB NEB SCH ×3 (01:30→13:30)
[2020-05-11 04:42] LABS: BASOPHILS # (AUTO) 0.1 (0.0-0.1); BASOPHILS % 0.4 % (0.0-1.0); EOSINOPHILS # (AUTO) 0.1 (0.0-0.4); EOSINOPHILS % 0.5 % (0.0-6.0); HEMATOCRIT 40.9 % (34.2-44.1); HEMOGLOBIN 11.9 g/dL (12.0-16.0); LYMPHOCYTES # (AUTO) 1.4 (1.0-3.2); LYMPHOCYTES % 11.9 % (18.0-39.1); MEAN CORPUSCULAR HGB CONC 29.1 g/dL (31-35); MONOCYTES # (AUTO) 1.1 (0.2-0.8); MONOCYTES % 9.7 % (4.4-11.3); NEUTROPHILS % 76.8 % (38.7-80.0); PLATELET COUNT 62 x10e3/uL (140-360); RED BLOOD COUNT 4.58 x10e6/uL (3.6-5.1); RED CELL DISTRIBUTION WIDTH 18.1 % (11.7-14.4)
[2020-05-11 04:46] LABS: MEAN CORPUSCULAR VOLUME 89.3 fL (81-99)
[2020-05-11 05:01] LABS: ANION GAP 12.5 mmol/L (8-16); BLOOD UREA NITROGEN 15 mg/dL (7-26); BUN/CREATININE RATIO 31 (6-25); CALCIUM 9.2 mg/dL (8.4-10.2); CARBON DIOXIDE 25 mmol/L (22-29); CHLORIDE 106 mmol/L (98-107); CREATININE, SERUM 0.48 mg/dL (0.57-1.11); EST GLOMERULAR FILTRATION RATE > 60 ML/MIN (60-); GLUCOSE 88 mg/dL (74-118); POTASSIUM 4.5 mmol/L (3.5-5.1); SODIUM 139 mmol/L (136-145)
[2020-05-11 07:32] LABS: BAND NEUTROPHILS % (MANUAL) 7 %; LYMPHOCYTES % (MANUAL) 16 % (19-48); MONOCYTES % (MANUAL) 14 % (3.4-9.0); NEUTROPHILS % (MANUAL) 63 % (40-74)
[2020-05-11 07:33] LABS: RBC MORPHOLOGY COMMENT NORMAL
[2020-05-11 07:34] LABS: PLATELET MORPHOLOGY COMMENT FEW EDTA CLUMPING
[2020-05-11 07:35] LABS: PLATELET ESTIMATE MODERATELY DECREASED
[2020-05-11] MEDS: PANTOPRAZOLE 40 MG 10ML VIAL IV SCH (09:02)
[2020-05-11] MEDS: CEFEPIME 1GM/NS 0.9% 50 ML 50 ML IV SCH (09:03)
[2020-05-11] MEDS: AZITHROMYCIN 250 MG TAB PO SCH (09:04)
[2020-05-11] MEDS: BALSAM PERU/CASTOR OIL 60 GM OINT...G. TP SCH (09:04)
[2020-05-11] MEDS: ETHAMBUTOL HCL 400 MG TAB PO SCH (09:04)
[2020-05-11] MEDS: RIFAMPIN 300 MG CAP PO SCH (09:04)
[2020-05-11] MEDS ORDERED: SERTRALINE HCL 50 MG TAB PO SCH (09:30)
[2020-05-12] MEDS ORDERED: MORPHINE SULFATE 2 MG/ML SYR 1ML IV PRN
== END 2020-05-12 02:05 | disposition expired | DRG 640 ==
LOC: ER 16:50 → ERHOLD 19:38 → MED/SURG2 21:29 → ICU 05-03 22:10
PROVIDERS: ADMIT Family Medicine; ATTEND Family Medicine
PROC: 0BH17EZ Insertion of Endotracheal Airway into Trachea, Via Natural or Artificial Opening (ICD-10-PCS; 2020-05-03)
PROC: 5A1935Z Respiratory Ventilation, Less than 24 Consecutive Hours (ICD-10-PCS; 2020-05-03)
PROC: 0DB98ZX Excision of Duodenum, Via Natural or Artificial Opening Endoscopic, Diagnostic (ICD-10-PCS; 2020-05-03 15:23)
PROC: 30243N1 Transfusion of Nonautologous Red Blood Cells into Central Vein, Percutaneous Approach (ICD-10-PCS; 2020-05-04)
PROC: 02HV33Z Insertion of Infusion Device into Superior Vena Cava, Percutaneous Approach (ICD-10-PCS; 2020-05-04)
PROC: 5A1955Z Respiratory Ventilation, Greater than 96 Consecutive Hours (ICD-10-PCS; 2020-05-05)
PROC: 0BH18EZ Insertion of Endotracheal Airway into Trachea, Via Natural or Artificial Opening Endoscopic (ICD-10-PCS; 2020-05-05)
PROC: 0DJ08ZZ Inspection of Upper Intestinal Tract, Via Natural or Artificial Opening Endoscopic (ICD-10-PCS; 2020-05-06)
PROC: 0DH63UZ Insertion of Feeding Device into Stomach, Percutaneous Approach (ICD-10-PCS; principal; 2020-05-06 18:50)
DX: E43 Unspecified severe protein-calorie malnutrition (principal); J96.21 Acute and chronic respiratory failure with hypoxia; J15.9 Unspecified bacterial pneumonia; J69.0 Pneumonitis due to inhalation of food and vomit; J96.22 Acute and chronic respiratory failure with hypercapnia; A31.9 Mycobacterial infection, unspecified; R64 Cachexia; Z68.1 Body mass index [BMI] 19.9 or less, adult; J44.0 Chronic obstructive pulmonary disease with (acute) lower respiratory infection; D62 Acute posthemorrhagic anemia; I46.9 Cardiac arrest, cause unspecified; R62.7 Adult failure to thrive; Z51.5 Encounter for palliative care; K20.90 Esophagitis, unspecified without bleeding; Z20.828 Contact with and (suspected) exposure to other viral communicable diseases; E87.6 Hypokalemia; M89.49 Other hypertrophic osteoarthropathy, multiple sites; K94.29 Other complications of gastrostomy
CPT/HCPCS: 31500; 36415; 36569; 36600; 43239; 43246; 71045; 71260; 74018; 74177; 80048; 80053; 81001; 82550; 82553; 82607; 82728; 82746; 82805; 82948; 83540; 83605; 83735; 84100; 84466; 84484; 85025; 85045; 85379; 85610; 85730; 86850; 86900; 86920; 87040; 87116; 87206; 87493; 88305; 92950; 93306; 94002; 94003; 94640; 94660; 94664; 97139; 99251; 99284; J0330; J0692; J0696; J1100; J1644; J1756; J2001; J2250; J2270; J2543; J3480; J7030; J7042; J7050; J7070; P9016; Q9967; U0002